=== PATIENT | female | born 1960 | race Caucasian/White ===

== ENCOUNTER 2016-06-06 16:00 | Observation (INO) | payer OTHER ==
[2016-06-06 16:36] LABS: Hematocrit 42 % (35-47); Hemoglobin 13.8 g/dl (12.0-16.0); Mean Corpuscular HGB Conc 33 g/dl (31-36); Mean Corpuscular Hemoglobin 29 pg (27-31); Mean Corpuscular Volume 89 fL (80-97); Mean Platelet Volume 8 um3 (7.4-10.4); Red Blood Count 4.69 10^6/ul (4.0-5.4); Red Cell Distribution Width 14 % (10.5-15); White Blood Count 12.3 10^3/ul (3.5-10.8)
[2016-06-06] MEDS ORDERED: Morphine INJ* 4 MG/ML 1 ML SYRINGE IV ONE ×2 (16:37→20:29)
[2016-06-06] MEDS ORDERED: Ondansetron INJ* 2 MG/ML VIAL IV ONE (16:37)
[2016-06-06 17:00] LABS: ALT 16 U/L (7-52); Albumin 4.2 g/dL (3.2-5.2); Alkaline Phosphatase 47 U/L (34-104); BUN/Creatinine Ratio 27.1 (8-20); Blood Urea Nitrogen 19 mg/dL (6-24); CO2 Carbon Dioxide 23 mmol/L (22-32); Calcium 9.4 mg/dL (8.6-10.3); Chloride 104 mmol/L (101-111); EGFR African American 110.9 (>60); EGFR Non-African American 86.2 (>60); Globulin 3.4 g/dL (2-4); Glucose 157 mg/dL (70-100); Sodium 135 mmol/L (133-145); Total Protein 7.6 g/dL (6.4-8.9)
--- NOTE | 2016-06-06 17:55 | RAD ---
INDICATION: Chest pain and shortness of breath COMPARISON: Chest x-ray dated December 19, 2014 TECHNIQUE: Single AP portable view of the chest was obtained. FINDINGS: Image quality is compromised due to the relative inferiority of a portable chest x-ray. The heart and mediastinum exhibit normal size and contour. There is density obscuring the bilateral lung bases and blunting the costophrenic angles. Visualized bones are normal for the patient's age. IMPRESSION: Chest x-ray findings could be consistent with bilateral lung bases hypoventilatory change, small pleural effusions or similar be the consequence of poor penetration due to the inherent inferiority of a portable chest x-ray and the patient's apparent large body habitus.
[2016-06-06 20:03] LABS: Troponin I 0.01 ng/mL (<0.04)
--- NOTE | 2016-06-06 20:58 | HP ---
H&P (Free Text) History and Physical: PCP: Juan R Amos MD Date/Time of Evaluation: 06/06/2016 2100 CC: chest pain HPI: Mrs Adler is a 56YO super morbidly obese female HX DM2, HTN who reports increased SOB starting ~5days ago which she attributed to her fentanyl patch being increased by pain management from 12.5 to 25mcg. However, stopping this did not help. She remained otherwise stable until ~24hours ago when she began experiencing continuous, non-radiating, non-exertional mixed substernal to R chest pain which at baseline is dull, but increases in intensity to 9/10 with movement or deep inspiration and is associated with increased SOB, nausea, palpitations, and sweats. She has experienced some tingling in B hands and a brief episode of an uncharacterizable "strange" sensation in her face, but denies facial droop, change in speech/vision, focal W/N/T, or incoordination. She has also had 5 loose stools today without bloody or black content. Work up is notable for hypertensive vitals, systolics 150-160s, but otherwise stable. Labs reveal baseline WBCs of 12k 80% neutrophils, negative d-dimer of 209, negative troponin of 0.00, and lactic acid of 2.1. ECG & CXR appear benign. PMedHx DM2 COPD HTN HLD GERD chronic LBP & R shoulder pain chronic leukocytosis GLENN on BiPap Allergies No Known Allergies Allergy (Verified 05/04/16 11:08) Ambulatory Orders Albuterol HFA INHALER* [Proair Hfa Inhaler*] 2 puff INH Q8HR PRN 12/26/11 Tizanidine HCl [Zanaflex] 8 mg PO TID 12/26/11 Cetirizine HCl 10 mg PO DAILY 12/28/11 Conjugated Estrogens TAB* [Premarin TAB*] 0.625 mg PO DAILY 12/28/11 Aspirin Low Dose CHEW TAB* [Aspirin Low Dose TAB*] 81 mg PO DAILY 08/14/13 Montelukast Sodium TAB* [Singulair TAB*] 10 mg PO BEDTIME 08/14/13 Potassium Chloride Microencaps [Klor-Con M20] 20 meq PO DAILY 08/14/13 Fluticasone NASAL SPRAY 50MCG* [Flonase NASAL SPRAY 50MCG*] 2 spray BOTH NARES DAILY 09/27/13 Meclizine HCl 50 mg PO BEDTIME PRN 09/27/13 Multiple Vitamin [Multivitamins] 1 cap PO DAILY 09/27/13 Oyster Shell [Calcium] 500 mg PO DAILY 09/27/13 Polyethylene Glycol 3350* [Miralax*] 17 gm PO DAILY 09/27/13 Triamterene/HCTZ 37.5-25 MG* [Dyazide CAP*] 1 tab PO DAILY 09/27/13 Artificial Saliva [Biotene Moisturizing Mout] 1 spray PO TID 11/03/13 Trazodone HCl 50 - 100 mg PO BEDTIME 11/27/13 Diclofenac 1.3% PATCH (NF) [Flector 1.3% PATCH (NF)] 1 patch TRANSDERM Q12HR Omeprazole-Sodium Bicarbonate [Omeprazole/Sodium Bicarbo] 1 cap PO QAM 01/08/14 metFORMIN* [Glucophage*] 500 mg PO BID 01/08/14 Ranitidine HCl 300 mg PO BEDTIME 01/15/14 Zonisamide 100 mg PO TID 04/14/14 Amlodipine Besylate [Norvasc-] 10 mg PO DAILY 09/06/14 Lisinopril [Zestril 5 MG-] 5 mg PO DAILY 09/06/14 Artificial Saliva [Neutrasal] 1 pow MT DAILY PRN 12/05/14 Mesalamine (NF) [Lialda (NF)] 2.4 gm PO DAILY 07/10/15 Nystatin TOP POWDER* 1 applic TOPICAL TID #1 btl 12/05/15 fentaNYL PATCH 12 MCG/HR * [Duragesic Patch 12 Mcg/Hr *] 12 mcg TRANSDERM Q72H 05/04/16 oxyCODONE/Acetamin 10/325(NF) [Percocet 10/325 (NF)] 1 tab PO Q4H PRN 05/04/16 PSurgHx B breast reduction cholecystectomy hysterectomy B knee arthroscopies SocHx: former smoker quit ~30 years ago, no alcohol or recreational drugs; lives with her ; formerly drove a school bus; full code status FamHx: positive for CAD, CVA, HTN, "bone cancer", & DM2 ROS: as above, otherwise reviewed and all were negative Constitutional: NAD, normally developed, super morbidly obese white female vitals: Vital Signs Temp 36.8 C 06/06/16 16:12 Pulse 103 06/06/16 20:30 Resp 19 06/06/16 20:30 BP 156/83 06/06/16 20:30 Pulse Ox 98 06/06/16 20:30 Intake & Output 06/05/16 06/06/16 06/06/16 23:59 11:59 23:59 Weight 149.685 kg HEENM: atraumatic; sclera/conjunctiva: non-icteric/clear; hearing: clinically intact; oropharynx: clear, mucosa moist Neck: soft tissue: non-tender; thyroid: normal Pulmonary: clear to auscultation bilaterally, good aeration, no accessory muscle use CV: RR/RR, normal S1S2, no carotid bruit, no jugular venous distention, 2+ B DP/ PT, no edema Abdominal: soft, non-distended, non-tender, no rebound/guarding/rigidity, normoactive bowel sounds, no hepatosplenomegaly or masses, no costovertebral angle tenderness Musculoskeletal: general: grossly intact w/o overt deformity Integumental: normal appearance and texture Psychiatric orientation: AA&O to PPS affect: calm mood: cooperative eye contact: good content: reliable responses: timely insight: fair Testing: Lab Results 06/06/16 06/06/16 06/06/16 Range/Units 16:25 16:25 16:25 WBC 12.3 H (3.5-10.8) 10^3/ul RBC 4.69 (4.0-5.4) 10^6/ul Hgb 13.8 (12.0-16.0) g/dl Hct 42 (35-47) % MCV 89 (80-97) fL MCH 29 (27-31) pg MCHC 33 (31-36) g/dl RDW 14 (10.5-15) % Plt Count 182 (150-450) 10^3/ul MPV 8 (7.4-10.4) um3 Neut % (Auto) 80.0 (38-83) % Lymph % (Auto) 10.6 L (25-47) % [place] % (Auto) 5.0 (1-9) % Eos % (Auto) 3.5 (0-6) % Baso % (Auto) 0.9 (0-2) % Absolute Neuts (auto) 9.8 H (1.5-7.7) 10^3/ul Absolute Lymphs (auto) 1.3 (1.0-4.8) 10^3/ul Absolute Monos (auto) 0.6 (0-0.8) 10^3/ul Absolute Eos (auto) 0.4 (0-0.6) 10^3/ul Absolute Basos (auto) 0.1 (0-0.2) 10^3/ul Absolute Nucleated RBC 0 10^3/ul Nucleated RBC % 0 D-Dimer, Quantitative (Less Than 230) ng/mL Sodium 135 (133-145) mmol/L Potassium TNP Chloride 104 (101-111) mmol/L Carbon Dioxide 23 (22-32) mmol/L Anion Gap TNP BUN 19 (6-24) mg/dL Creatinine 0.70 (0.51-0.95) mg/dL Est GFR ( Amer) 110.9 (>60) Est GFR (Non-Af Amer) 86.2 (>60) BUN/Creatinine Ratio 27.1 H (8-20) Glucose 157 H (70-100) mg/dL Lactic Acid 2.1 H* (0.5-2.0) mmol/L Calcium 9.4 (8.6-10.3) mg/dL Total Bilirubin 0.50 (0.2-1.0) mg/dL AST TNP ALT 16 (7-52) U/L Alkaline Phosphatase 47 (34-104) U/L Troponin I 0.00 (<0.04) ng/mL B-Natriuretic Peptide ( - 100) pg/mL Total Protein 7.6 (6.4-8.9) g/dL Albumin 4.2 (3.2-5.2) g/dL Globulin 3.4 (2-4) g/dL Albumin/Globulin Ratio 1.2 (1-3) 06/06/16 06/06/16 06/06/16 Range/Units 16:25 16:25 19:34 WBC (3.5-10.8) 10^3/ul RBC (4.0-5.4) 10^6/ul Hgb (12.0-16.0) g/dl Hct (35-47) % MCV (80-97) fL MCH (27-31) pg MCHC (31-36) g/dl RDW (10.5-15) % Plt Count (150-450) 10^3/ul MPV (7.4-10.4) um3 Neut % (Auto) (38-83) % Lymph % (Auto) (25-47) % [place] % (Auto) (1-9) % Eos % (Auto) (0-6) % Baso % (Auto) (0-2) % Absolute Neuts (auto) (1.5-7.7) 10^3/ul Absolute Lymphs (auto) (1.0-4.8) 10^3/ul Absolute Monos (auto) (0-0.8) 10^3/ul Absolute Eos (auto) (0-0.6) 10^3/ul Absolute Basos (auto) (0-0.2) 10^3/ul Absolute Nucleated RBC 10^3/ul Nucleated RBC % D-Dimer, Quantitative 209 (Less Than 230) ng/mL Sodium (133-145) mmol/L Potassium 3.5 Chloride (101-111) mmol/L Carbon Dioxide (22-32) mmol/L Anion Gap BUN (6-24) mg/dL Creatinine (0.51-0.95) mg/dL Est GFR ( Amer) (>60) Est GFR (Non-Af Amer) (>60) BUN/Creatinine Ratio (8-20) Glucose (70-100) mg/dL Lactic Acid (0.5-2.0) mmol/L Calcium (8.6-10.3) mg/dL Total Bilirubin (0.2-1.0) mg/dL AST 11 L ALT (7-52) U/L Alkaline Phosphatase (34-104) U/L Troponin I 0.01 (<0.04) ng/mL B-Natriuretic Peptide 21 ( - 100) pg/mL Total Protein (6.4-8.9) g/dL Albumin (3.2-5.2) g/dL Globulin (2-4) g/dL Albumin/Globulin Ratio (1-3) ECG, personally reviewed: NSR rate 91, no ischemia, similar to comparison 2014 CXR, personally reviewed: IMPRESSION: Chest x-ray findings could be consistent with bilateral lung bases hypoventilatory change, small pleural effusions or similar be the consequence of poor penetration due to the inherent inferiority of a portable chest x-ray and the patient's apparent large body habitus. Impression: 56F super morbidly obese, DM2, HTN presenting with atypical chest pain for r/o ACS DIAGNOSIS & PLAN Primary chest pain r/o ACS : aspirin 81mg chew x4 given by EMS : metoprolol : supplemental oxygen : trend troponin : check ECHO in AM : consider cardiology consult in AM for further disposition : supportive care Secondary DM2 : hold outpatient medications : basal/bolus/correctional protocol : insulin carb ratio diet : check A1c COPD : albuterol nebs PRN : review outpatient meds once reconciled HTN : review outpatient meds once reconciled HLD : review outpatient meds once reconciled GERD : PO omeprazole chronic LBP & R shoulder pain : review outpatient meds once reconciled chronic leukocytosis : periodic monitoring GLENN : continue home BiPap nightly Admission Rational: CDU observation for r/o ACS DVTp: SCDs & heparin SQ Code Status: full HCP:
--- NOTE | 2016-06-06 21:09 | ED ---
Rashel Tanner Janilya, scribed for César Escalera MD on 06/06/16 at 1637 . Shortness of Breath - HPI Summary HPI Summary: A 56 y/o female was BIBA for a gradual onset of constant SOB for about a week. Pt also reports CP that started yesterday; CP radiates to back. The pain feels like "someone's sitting on my chest". Pt states she feels like she's congested. Nothing makes her condition better or worse. In addition, pt reports n/v/d. Pt had similar Sx before. She was diagnosed with pneumonia. However, at this time, pt denies cough, runny nose. PMHx: asthma, DM, cholecystectomy, HTN, COPD - History of Current Complaint Chief Complaint: EDChestPainROMI Time Seen by Provider: 06/06/16 16:18 Hx Obtained From: Patient Onset/Duration: Gradual Onset, Lasting Days, Still Present Timing: Constant Current Severity: Moderate Aggrevating Factors: Deep Breaths Alleviating Factors: Nothing - Allergy/Home Medications Allergies/Adverse Reactions: Allergies Allergy/AdvReac Type Severity Reaction Status Date / Time No Known Allergies Allergy Verified 05/04/16 11:08 PMH/Surg Hx/FS Hx/Imm Hx Previously Healthy: No Endocrine/Hematology History: Reports: Hx Diabetes Denies: Hx Anticoagulant Therapy Cardiovascular History: Reports: Hx Angina, Hx Hypertension Denies: Hx Congestive Heart Failure, Hx Coronary Artery Disease, Hx Hypercholesterolemia, Hx Myocardial Infarction, Hx Valvular Heart Disease Respiratory History: Reports: Hx Asthma, Hx Chronic Obstructive Pulmonary Disease (COPD), Hx Pneumonia, Hx Seasonal Allergies, Hx Sleep Apnea - Has own machine, Other Respiratory Problems/Disorders - PNA GI History: Reports: Hx Gastroesophageal Reflux Disease History: Denies: Hx Dialysis, Hx Renal Disease Musculoskeletal History: Reports: Hx Arthritis, Hx Back Problems, Hx Orthopedic Injury - right shoulder, B/L KNEE ARTHROSCOPY Sensory History: Reports: Hx Contacts or Glasses, Other Sensory Impairments - vertigo Opthamlomology History: Reports: Hx Contacts or Glasses, Other Sensory Impairments - vertigo Neurological History: Reports: Other Neuro Impairments/Disorders - Vertigo. Menieres Disease. - Cancer History Hx Chemotherapy: No Hx Radiation Therapy: No - Surgical History Surgery Procedure, Year, and Place: [facility]; ; R and L arthroscopic KNEE SURGERY; BREAST REDUCTION; HYSTERECTOMY Hx Anesthesia Reactions: No - Immunization History Date of Tetanus Vaccine: 2009 Date of Influenza Vaccine: Fall 2012 Infectious Disease History: No Infectious Disease History: Denies: Traveled Outside the [place] in Last 30 Days - Family History Known Family History: Positive: Hypertension - Social History Alcohol Use: None Alcohol Amount: 1 every month Substance Use Type: Reports: None Substance Use Comment - Amount & Last Used: oxycodone Smoking Status (MU): Former Smoker Type: Cigarettes Amount Used/How Often: 1ppd Length of Time of Smoking/Using Tobacco: 4 Have You Smoked in the Last Year: No Review of Systems Positive: Other - congested sensation. Negative: Nasal Discharge Positive: Chest Pain Positive: Shortness Of Breath. Negative: Cough Positive: Vomiting, Diarrhea, Nausea All Other Systems Reviewed And Are Negative: Yes Physical Exam Triage Information Reviewed: Yes Vital Signs On Initial Exam: Initial Vitals Temp Pulse Resp BP Pulse Ox 98.3 F 94 18 150/80 99 06/06/16 16:12 06/06/16 16:12 06/06/16 16:12 06/06/16 16:12 06/06/16 16:12 Vital Signs Reviewed: Yes Appearance: Positive: Well-Appearing, No Pain Distress, Obese - morbidly Skin: Positive: Warm, Skin Color Reflects Adequate Perfusion, Dry Head/Face: Positive: Normal Head/Face Inspection Eyes: Positive: Normal ENT: Positive: Normal ENT inspection Neck: Positive: Supple, Nontender Respiratory/Lung Sounds: Positive: Clear to Auscultation, Breath Sounds Present Cardiovascular: Positive: RRR Abdomen Description: Positive: Nontender, Soft Bowel Sounds: Positive: Present Musculoskeletal: Positive: Normal Neurological: Positive: Normal Psychiatric: Positive: Affect/Mood Appropriate Diagnostics - Vital Signs Vital Signs Temp Pulse Resp BP Pulse Ox 06/06/16 16:12 98.3 F 94 18 150/80 99 - Laboratory Lab Results: Lab Results 06/06/16 06/06/16 06/06/16 Range/Units 16:25 16:25 16:25 WBC 12.3 H (3.5-10.8) 10^3/ul RBC 4.69 (4.0-5.4) 10^6/ul Hgb 13.8 (12.0-16.0) g/dl Hct 42 (35-47) % MCV 89 (80-97) fL MCH 29 (27-31) pg MCHC 33 (31-36) g/dl RDW 14 (10.5-15) % Plt Count 182 (150-450) 10^3/ul MPV 8 (7.4-10.4) um3 Neut % (Auto) 80.0 (38-83) % Lymph % (Auto) 10.6 L (25-47) % [place] % (Auto) 5.0 (1-9) % Eos % (Auto) 3.5 (0-6) % Baso % (Auto) 0.9 (0-2) % Absolute Neuts (auto) 9.8 H (1.5-7.7) 10^3/ul Absolute Lymphs (auto) 1.3 (1.0-4.8) 10^3/ul Absolute Monos (auto) 0.6 (0-0.8) 10^3/ul Absolute Eos (auto) 0.4 (0-0.6) 10^3/ul Absolute Basos (auto) 0.1 (0-0.2) 10^3/ul Absolute Nucleated RBC 0 10^3/ul Nucleated RBC % 0 D-Dimer, Quantitative (Less Than 230) ng/mL Sodium 135 (133-145) mmol/L Potassium TNP Chloride 104 (101-111) mmol/L Carbon Dioxide 23 (22-32) mmol/L Anion Gap TNP BUN 19 (6-24) mg/dL Creatinine 0.70 (0.51-0.95) mg/dL Est GFR ( Amer) 110.9 (>60) Est GFR (Non-Af Amer) 86.2 (>60) BUN/Creatinine Ratio 27.1 H (8-20) Glucose 157 H (70-100) mg/dL Lactic Acid 2.1 H* (0.5-2.0) mmol/L Calcium 9.4 (8.6-10.3) mg/dL Total Bilirubin 0.50 (0.2-1.0) mg/dL AST TNP ALT 16 (7-52) U/L Alkaline Phosphatase 47 (34-104) U/L Troponin I 0.00 (<0.04) ng/mL B-Natriuretic Peptide ( - 100) pg/mL Total Protein 7.6 (6.4-8.9) g/dL Albumin 4.2 (3.2-5.2) g/dL Globulin 3.4 (2-4) g/dL Albumin/Globulin Ratio 1.2 (1-3) 06/06/16 06/06/16 06/06/16 Range/Units 16:25 16:25 19:34 WBC (3.5-10.8) 10^3/ul RBC (4.0-5.4) 10^6/ul Hgb (12.0-16.0) g/dl Hct (35-47) % MCV (80-97) fL MCH (27-31) pg MCHC (31-36) g/dl RDW (10.5-15) % Plt Count (150-450) 10^3/ul MPV (7.4-10.4) um3 Neut % (Auto) (38-83) % Lymph % (Auto) (25-47) % [place] % (Auto) (1-9) % Eos % (Auto) (0-6) % Baso % (Auto) (0-2) % Absolute Neuts (auto) (1.5-7.7) 10^3/ul Absolute Lymphs (auto) (1.0-4.8) 10^3/ul Absolute Monos (auto) (0-0.8) 10^3/ul Absolute Eos (auto) (0-0.6) 10^3/ul Absolute Basos (auto) (0-0.2) 10^3/ul Absolute Nucleated RBC 10^3/ul Nucleated RBC % D-Dimer, Quantitative 209 (Less Than 230) ng/mL Sodium (133-145) mmol/L Potassium 3.5 Chloride (101-111) mmol/L Carbon Dioxide (22-32) mmol/L Anion Gap BUN (6-24) mg/dL Creatinine (0.51-0.95) mg/dL Est GFR ( Amer) (>60) Est GFR (Non-Af Amer) (>60) BUN/Creatinine Ratio (8-20) Glucose (70-100) mg/dL Lactic Acid (0.5-2.0) mmol/L Calcium (8.6-10.3) mg/dL Total Bilirubin (0.2-1.0) mg/dL AST 11 L ALT (7-52) U/L Alkaline Phosphatase (34-104) U/L Troponin I 0.01 (<0.04) ng/mL B-Natriuretic Peptide 21 ( - 100) pg/mL Total Protein (6.4-8.9) g/dL Albumin (3.2-5.2) g/dL Globulin (2-4) g/dL Albumin/Globulin Ratio (1-3) Result Diagrams: 06/06/16 16:25 06/06/16 19:34 Lab Statement: Any lab studies that have been ordered have been reviewed, and results considered in the medical decision making process. - Radiology CXR Xray Interpretation: Positive (See Comments) - IMPRESSION: Chest x-ray findings could be consistent with bilateral lung bases hypoventilatory change, small pleural effusions or similar be the consequence of poor penetration due to the inherent inferiority of a portable chest x-ray and the patient's apparent large body habitus. Radiology Interpretation Completed By: Radiologist - EKG 1638 Cardiac Rate: NL - 91 bpm EKG Rhythm: Sinus Rhythm ST Segment: Normal Course/Dx - Diagnoses Provider Diagnoses: Chest pain - Physician Notifications Discussed Care of Patient With: Dr. Carbone (hospitalist) at 2039: agrees to evaluate pt for admission. Discharge - Discharge Plan Condition: Stable Disposition: ADMITTED TO [facility] Referrals: Isa Jarrell MD [Primary Care Provider] - The documentation as recorded by the Rashel newton Janilya accurately reflects the service I personally performed and the decisions made by , César Escalera MD.
[2016-06-06] MEDS ORDERED: Melatonin (NF) 3 MG TAB PO PRN (21:44)
[2016-06-06] MEDS ORDERED: Acetaminophen TAB* 325 MG PO PRN (21:44)
[2016-06-06] MEDS ORDERED: Albuterol 2.5 MG/3 ML NEB.SOL* (0.083%) INH PRN (21:44)
[2016-06-06] MEDS ORDERED: hydrALAZINE IV* 20 MG/ML VIAL IV PRN (21:44)
[2016-06-06] MEDS ORDERED: Meclizine TAB* 12.5 MG PO PRN (21:56)
[2016-06-06] MEDS ORDERED: fentaNYL PATCH 12 MCG/HR TRANSDERM SCH (22:00)
[2016-06-07] MEDS: oxyCODONE TAB* 5 MG TAB PO PRN ×2 (02:24→09:13)
[2016-06-07] MEDS: HYDROmorphone* 1 MG/ML 1 ML SYR IV PRN ×3 (02:46→14:14)
[2016-06-07] MEDS: Ondansetron INJ* 2 MG/ML VIAL IV PRN ×2 (02:47→09:09)
[2016-06-07] MEDS: Heparin VIAL(*) 5000 UNITS/ML VIAL (FIVE THOUSAND) SUBCUT SCH ×2 (05:37→13:17)
[2016-06-07] MEDS ORDERED: Omeprazole CAP* 20 MG PO SCH (06:00)
[2016-06-07 06:49] LABS: Hematocrit 41 % (35-47); Hemoglobin 13.9 g/dl (12.0-16.0); Mean Corpuscular HGB Conc 34 g/dl (31-36); Mean Corpuscular Hemoglobin 30 pg (27-31); Mean Corpuscular Volume 88 fL (80-97); Mean Platelet Volume 8 um3 (7.4-10.4); Red Cell Distribution Width 14 % (10.5-15); White Blood Count 12.1 10^3/ul (3.5-10.8)
[2016-06-07] MEDS ORDERED: fentaNYL Patch Check Q Shift 1 NOTE SCH (07:00)
[2016-06-07 08:19] VITALS: BP 162/78
[2016-06-07] MEDS ORDERED: amLODIPine TAB* 5 MG PO SCH (09:00)
[2016-06-07] MEDS ORDERED: Potassium Chlor TAB* 20 MEQ TAB.ER PO SCH (09:00)
[2016-06-07] MEDS ORDERED: Polyethylene Glycol 3350* 17 GM PACKET PO SCH (09:00)
[2016-06-07] MEDS ORDERED: guaiFENesin ER TAB 600 MG PO SCH (09:00)
[2016-06-07] MEDS ORDERED: Diclofenac 1.3% PATCH (NF) 5 PATCHS TRANSDERM SCH (09:00)
[2016-06-07] MEDS ORDERED: Mesalamine (NF) 1.2 GM TAB PO SCH (09:00)
[2016-06-07] MEDS ORDERED: Triamterene/HCTZ 37.5-25 MG* CAP PO SCH (09:00)
[2016-06-07] MEDS ORDERED: Lisinopril TAB* 5 MG PO SCH (09:00)
[2016-06-07] MEDS: Insulin LISPRO* 1 UNITS UNIT SUBCUT SCH ×4 (09:07→13:19)
[2016-06-07] MEDS: tiZANidine TAB* 2 MG PO SCH ×2 (09:11→13:17)
[2016-06-07] MEDS: Zonisamide(NF) 100 MG CAP PO SCH ×2 (11:15→13:20)
[2016-06-07] MEDS ORDERED: Ketorolac INJ* 30 MG/ML 1 ML VIAL IV PUSH PRN (11:38)
[2016-06-07] MEDS: Nystatin TOP POWDER* 15 GM BTL TOPICAL SCH ×2 (13:29)
--- NOTE | 2016-06-07 14:37 | ECHO ---
Patient: YUE STARK [facility] Rec#: [id number] : 1960 Date: 06/07/2016 Age: 56y Height: 154.9 cm / 61.0 in Weight: 149.7 kg / 329.9 lbs Sex: F BSA: 2.3 Room#: 451 Admit Date#: 06/06/2016 Type: Inpatient Referring: Jamie Carbone MD Reading: Robert Denise MD Area Mechanic: Nasreen Toussaint RN RDCS CC: HUMZA MCDONALD Transthoracic Echocardiogram Indication: Chest pain BP: 161/74 HR: 64 Rhythm: NSR Findings History: Super morbid obesity, HTN, HLD, DM, GLENN, COPD, former smoker, chronic pain Technical Comments: The study is technically limited due to poor acoustic windows. The study is technically limited due to patient body habitus. The study is technically limited due to the patient's history of COPD. The study is technically limited due to the patient's smoking history. The study was technically limited due to the patient's inability to lay in the left lateral decubitus position. Completed at 1320. Left Ventricle: The left ventricular chamber size is normal. Mild concentric left ventricular hypertrophy is observed. Global left ventricular wall motion and contractility are within normal limits. Left ventricular systolic function is at the lower limits of normal. The estimated ejection fraction is 50-55%. There is an E to A reversal in the mitral valve flow pattern suggestive of diastolic dysfunction. Left Atrium: The left atrial chamber size is normal. Right Ventricle: The right ventricular cavity size is normal. The right ventricular global systolic function is mildly reduced. Right Atrium: The right atrial cavity size is normal. Aortic Valve: The aortic valve leaflets are mildly thickened. There is no evidence of aortic regurgitation. There is no evidence of aortic stenosis. Mitral Valve: The mitral valve leaflets are mildly thickened. There is a trace of mitral regurgitation. There is no evidence of mitral stenosis. Tricuspid Valve: The tricuspid valve structure is not well visualized. There is trace tricuspid regurgitation. Unable to estimate the right ventricular systolic pressure. Pulmonic Valve: The pulmonic valve structure is not well visualized. There is a trace pulmonic regurgitation. There is no pulmonic stenosis. Pericardium: There is no significant pericardial effusion. A pericardial fat pad is visualized. Aorta: There is no dilatation of the ascending aorta. There is no dilatation of the aortic arch. There is no dilation of the aortic root. Pulmonary Artery: The main pulmonary artery is not well visualized. Venous: The inferior vena cava is dilated. There is an approximate 50% respiratory change in the inferior vena cava dimension. Conclusions The study is technically limited due to poor acoustic windows. Mild concentric left ventricular hypertrophy is observed. Left ventricular systolic function is at the lower limits of normal. The estimated ejection fraction is 50-55%. There is an E to A reversal in the mitral valve flow pattern suggestive of diastolic dysfunction. The right ventricular global systolic function is mildly reduced. Prior echo 11/2012 ( not available at present) Measurements Name Value Normal Range RVDdMajor (2D) 3.3 cm (2.2 - 4.4) RAd ISD 4CH 4.5 cm (3.4 - 4.9) RA (A4C)W 4.1 cm (2.9 - 4.6) IVSd (2D) 1.1 cm (0.6 - 1) LVPWd (2D) 1.1 cm (0.6 - 1) LVIDd (2D) 4.9 cm (3.6 - 5.4) LVIDs (2D) 3.5 cm - LV FS (2D) 29 % (25 - 45) Aortic Annulus 2.2 cm (1.4 - 2.6) Ao root diameter (2D) 2.9 cm (2.1 - 3.5) Ascending Ao 3.1 cm (2.1 - 3.4) Aortic arch 2.3 cm (1.8 - 3.4) LA dimension (AP) 2D 3.7 cm (2.3 - 3.8) LAd ISD 4CH 5.2 cm (2.9 - 5.3) LA ISD 4CH W 4.3 cm (2.5 - 4.5) Name Value Normal Range MV E-wave Vmax 0.64 m/sec - MV deceleration time 249 msec - MV A-wave Vmax 0.71 m/sec - MV E:A ratio 0.9 ratio - LV septal e' Vmax 0.07 m/sec - LV E:e' septal ratio 9.1 ratio - Name Value Normal Range AV Vmax 15 m/sec - AV peak gradient 9 mmHg - LVOT Vmax 0.7 m/sec - LILLIAN Vmax 0.67 m/sec - Name Value Normal Range IVC diameter 2.9 cm - Name Value Normal Range PV Vmax 0.78 m/sec -
--- NOTE | 2016-06-07 15:44 | DCNOTE ---
Patient seen this morning and again in the afternoon. Continues to have R sided chest pain that is non-radiating. Is on large amounts of narcotics with no improvement. Trial of Toradol for anti-inflammatory effects. On exam, super morbid obese F, laying in bed in NAD, RRR, s1 and s2 present, no m/g/r, abd soft, NTND, BS+ EKG with no clear ischemic changes. Troponins negative x5. Echo shows no WMA and normal EF. Suspect pain is MSK in nature, similar to her previous admission in 2014. Stress test at that time was normal, do not feel the patient needs additional stress test at this time as this pain is unlikely to be cardiac. D-dimer normal. CXR with no clear etiology for pain. Explained need for continued supportive care with home pain regimen and NSAIDs. Can use her home diclofenac patch over problem area. Will trial Lidoderm patch as well. Will f/u with PCP this week.
[2016-06-07] MEDS ORDERED: Montelukast Sodium TAB* 10 MG PO SCH (21:00)
[2016-06-07] MEDS ORDERED: traZODone TAB* 50 MG TAB PO SCH (21:00)
[2016-06-07] MEDS ORDERED: Famotidine TAB* 20 MG PO SCH (21:00)
[2016-06-07] MEDS ORDERED: Insulin GLARGINE(*) 1 UNITS UNIT SUBCUT SCH (21:00)
[2016-06-07] MEDS ORDERED: Metoprolol Succinate XL TAB* 25 MG PO ONE (21:45)
--- NOTE | 2016-06-08 02:33 | DS ---
DISCHARGE SUMMARY: DATE OF ADMISSION: 06/06/16 DATE OF DISCHARGE: 06/07/16 PRIMARY CARE PHYSICIAN: Dr. Jarrell. PRINCIPAL DISCHARGE DIAGNOSIS: Chest pain, atypical, likely musculoskeletal. SECONDARY DIAGNOSES: 1. Type 2 diabetes. 2. Chronic obstructive pulmonary disease. 3. Hypertension. 4. Hyperlipidemia. 5. Gastroesophageal reflux disease. 6. Super morbid obesity. 7. Chronic pain, on narcotics. 8. Chronic leukocytosis. 9. Obstructive sleep apnea, on BiPAP. DISCHARGE MEDICATION REGIMEN: 1. Lidoderm patch 1 patch transdermal daily. 2. Naproxen 375 mg by mouth 2 times daily. 3. Artificial saliva 1 spray by mouth 3 times daily. 4. Percocet 10/325 one tablet by mouth every 4 hours as needed for pain. 5. Fentanyl patch 12 mcg transdermal every 72 hours. 6. Metformin 500 mg by mouth 2 times daily. 7. Zonisamide 100 mg by mouth 3 times daily. 8. Dyazide 37.5/25 one tablet by mouth daily. 9. Tizanidine 8 mg by mouth 3 times daily. 10. Trazodone 50 to 100 mg by mouth at bedtime. 11. Potassium chloride 20 mEq by mouth daily. 12. Ranitidine 300 mg by mouth at bedtime. 13. Oyster Shell 500 mg by mouth daily. 14. MiraLAX 17 g by mouth daily. 15. Nystatin 1 application topical 3 times daily. 16. Omeprazole/sodium bicarb 1 capsule by mouth daily. 17. Montelukast 10 mg by mouth at bedtime. 18. Multivitamin 1 capsule by mouth daily. 19. Lisinopril 5 mg by mouth daily. 20. Meclizine 50 mg by mouth at bedtime as needed for dizziness. 21. Mesalamine 2.4 g by mouth daily. 22. Diclofenac patch 1 patch transdermal every 12 hours. 23. Flonase 2 sprays in both nares daily. 24. Albuterol 2 puffs inhaled every 8 hours as needed for shortness of breath or wheezing. 25. Amlodipine 10 mg by mouth daily. 26. Conjugated estrogen 0.625 mg by mouth daily. 27. Aspirin 81 mg by mouth daily. 28. Cetirizine 10 mg by mouth daily. STUDIES DONE DURING HOSPITALIZATION: 1. Chest x-ray, impression: Chest x-ray findings could be consistent with bilateral lung bases, hypoventilatory change, small pleural effusions or similar to the consequence of poor penetration due to portable chest x- ray and the patient's large body habitus. 2. Transthoracic echocardiogram: Study is technically limited due to poor acoustic windows. Mild concentric LVH is observed. Left ventricular systolic function is at the lower limits of normal. Estimated ejection fraction is 50% to 55%. There is an E to A reversal and the mitral valve flow pattern is suggestive of diastolic dysfunction. The right ventricular global systolic function is mildly reduced. HISTORY OF PRESENT ILLNESS AND HOSPITAL COURSE: Please see the full history and physical by Dr. Jamie Carbone for full details. Briefly, Ms. Adler is a 56-year- old super morbidly obese female with a past medical history as above who presented to the hospital with about 5 days of some vague shortness of breath, but was otherwise stable. She then developed continuous nonradiating right-sided chest pain, 9/10 at the worst. In the hospital, the patient had EKG with no acute ischemic changes. She had troponins checked that remained negative and was monitored on telemetry with no arrhythmias noted. Also, had an echocardiogram, but no focal wall motion abnormalities and a negative D- dimer. The patient had a very similar presentation in 2014. At that time, she underwent similar workup as well as a nuclear cardiac stress test that was negative. As the patient's pain has been constant and her troponins have been negative, I think there is a very low probability that this is cardiac in nature. I do not think she requires further stress testing at this time. Treated the patient symptomatically for likely musculoskeletal cause. I have added on some naproxen and a Lidoderm patch to her medications to try to control the pain as she is already on large doses of narcotics. The patient will follow up with her PCP, Dr. Jarrell, this week to see how she is coming along in terms of the pain. TIME SPENT: Total time spent on this discharge 45 minutes. This is a summary of the hospitalization. Please see the full medical record for further details. CC: Dr. Jarrell * [id number]/CPS #: [id number]
== END 2016-06-07 16:40 | disposition home or self-care (01) ==
LOC: ED 16:00 → MEDTELE 20:55
PROVIDERS: ADMIT Hospitalist; ATTEND Hospitalist
DX: R07.89 Other chest pain (principal); R06.02 Shortness of breath; E11.9 Type 2 diabetes mellitus without complications; J44.9 Chronic obstructive pulmonary disease, unspecified; I10 Essential (primary) hypertension; E78.5 Hyperlipidemia, unspecified; K21.9 Gastro-esophageal reflux disease without esophagitis; G47.33 Obstructive sleep apnea (adult) (pediatric); E66.01 Morbid (severe) obesity due to excess calories; G89.29 Other chronic pain; D72.829 Elevated white blood cell count, unspecified; Z79.84 Long term (current) use of oral hypoglycemic drugs; Z79.899 Other long term (current) drug therapy; Z79.82 Long term (current) use of aspirin; Z87.891 Personal history of nicotine dependence
CPT/HCPCS: 36415; 71010; 80053; 83036; 83605; 83880; 84484; 85025; 85027; 85379; 87502; 93005; 93306; 94760; 96374; 96375; 96376; 99284; A9270-GY; G0378; J1170; J1644; J1885; J2270; J2405